=== PATIENT | male | born 1970 ===

== ENCOUNTER 2019-07-02 18:36 | Emergency (ER) | payer OTHER ==
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
--- NOTE | 2019-07-02 23:04 | XRay Report ---
Right shoulder 3 views INDICATION: Right shoulder pain following injury IMPRESSION: No fracture or subluxation of the right shoulder is identified. Mild degenerative osteoar throsis of the right AC joint. Signer Name: Bartolo Cota MD Signed: 07/02/2019 10:59 PM Workstation Name: [id number]
[2019-07-03 00:22] VITALS: BP 138/94
== END 2019-07-03 | disposition home or self-care (01) ==
LOC: ED 18:36
DX: S49.91XA Unspecified injury of right shoulder and upper arm, initial encounter (principal); V89.2XXA Person injured in unspecified motor-vehicle accident, traffic, initial encounter; Y93.89 Activity, other specified; Y92.410 Unspecified street and highway as the place of occurrence of the external cause; Y99.8 Other external cause status